=== PATIENT | male | born 1950 | race Caucasian/White ===

== ENCOUNTER 2024-01-10 12:14 | Emergency (ER) | payer MEDICARE ==
[~2024-01-10] VITALS: Ht 182.9 cm; Wt 81.6 kg
[2024-01-10 12:20] VITALS: TEMP 98.6
[2024-01-10] MEDS: SODIUM CHLORIDE 0.9% 1000ML 1,000 ML IV STA (12:43)
[2024-01-10 13:17] LABS: BASOPHILS % 0.2 % (0.0-1.0); LYMPHOCYTES # (AUTO) 0.4 (1.0-3.2); LYMPHOCYTES % 5.2 % (18.0-39.1); MEAN CORPUSCULAR HGB CONC 31.7 g/dL (31-35); MEAN CORPUSCULAR VOLUME 94.7 fL (81-99); MONOCYTES # (AUTO) 0.6 (0.2-0.8); MONOCYTES % 6.8 % (4.4-11.3); NEUTROPHILS # (AUTO) 7.2 (2.1-6.9); NEUTROPHILS % 87.4 % (38.7-80.0); PLATELET COUNT 222 x10e3/uL (140-360); RED BLOOD COUNT 4.33 x10e6/uL (4.3-5.7); RED CELL DISTRIBUTION WIDTH 13.1 % (11.7-14.4); WHITE BLOOD COUNT 8.24 x10e3/uL (4.8-10.8)
[2024-01-10 13:26] LABS: INR 0.9; PROTHROMBIN TIME 12.6 seconds (11.9-14.5)
[2024-01-10 13:35] LABS: ALANINE AMINOTRANSFERASE 16 IU/L (0-55); ALBUMIN 4.1 g/dL (3.5-5.0); ALBUMIN/GLOBULIN RATIO 1.4 (0.8-2.0); ALKALINE PHOSPHATASE 63 IU/L (40-150); ANION GAP 14.3 mmol/L (8-16); BILIRUBIN,TOTAL 1.7 mg/dL (0.2-1.2); BLOOD UREA NITROGEN 20 mg/dL (7-26); BUN/CREATININE RATIO 19 (6-25); CALCIUM 9.6 mg/dL (8.4-10.2); CARBON DIOXIDE 25 mmol/L (22-29); CHLORIDE 104 mmol/L (98-107); CREATINE KINASE 57 IU/L (30-200); CREATININE, SERUM 1.08 mg/dL (0.72-1.25); EST GLOMERULAR FILTRATION RATE 72 ML/MIN (>=60); GLUCOSE 123 mg/dL (74-118); LIPASE 16 U/L (8-78); POTASSIUM 4.3 mmol/L (3.5-5.1); SODIUM 139 mmol/L (136-145); TOTAL PROTEIN 7.1 g/dL (6.5-8.1)
[2024-01-10] MEDS: MECLIZINE HCL 12.5 MG TAB PO STA (13:49)
[2024-01-10 13:57] LABS: B-TYPE NATRIURETIC PEPTIDE2 20.1 pg/mL (0-100)
[2024-01-10 14:30] LABS: TROPONIN I < 0.05 ng/mL (0.0-0.40)
[2024-01-10 15:00] VITALS: PULSE 63; RESP 18; O2SAT 100
[2024-01-10 15:18] LABS: BILIRUBIN,URINE NEGATIVE (NEGATIVE); CLARITY,URINE CLEAR (CLEAR); COLOR,URINE YELLOW (YELLOW); GLUCOSE, URINE NEGATIVE (NEGATIVE); KETONES,URINE NEGATIVE (NEGATIVE); LEUKOCYTE ESTERASE ,URINE NEGATIVE (NEGATIVE); NITRITE,URINE NEGATIVE (NEGATIVE); PH,URINE 5.5 (5 - 7); PROTEIN,URINE DIPSTICK NEGATIVE (NEGATIVE); URINE UROBILINOGEN 0.2 mg/dL (0.2 - 1)
[2024-01-10 15:29] LABS: BACTERIA,URINE MODERATE /HPF; EPITHELIAL CELLS,URINE MODERATE /LPF; MUCUS,URINE MODERATE (RARE); RBC,URINE 21-50 /HPF (0-5)
== END 2024-01-10 16:05 | disposition home or self-care (01) ==
LOC: ER 12:35
DX: R41.0 Disorientation, unspecified (principal); R42 Dizziness and giddiness; R11.2 Nausea with vomiting, unspecified; M54.9 Dorsalgia, unspecified; K57.90 Diverticulosis of intestine, part unspecified, without perforation or abscess without bleeding; N40.0 Benign prostatic hyperplasia without lower urinary tract symptoms; Z11.52 Encounter for screening for COVID-19
CPT/HCPCS: 36415; 70450; 70551; 74176; 80053; 81001; 82140; 82550; 83690; 83880; 84484; 85025; 85610; 93005; 99284; J7030; J8597; U0002

== ENCOUNTER 2024-05-13 02:56 | Emergency (ER) | payer MEDICARE ==
[~2024-05-13] VITALS: Ht 182.9 cm; Wt 81.6 kg
[2024-05-13 03:00] VITALS: PULSE 62; RESP 18; TEMP 98.6; O2SAT 96
== END 2024-05-13 03:46 | disposition home or self-care (01) ==
LOC: ER 03:01
DX: R30.0 Dysuria (principal); R33.9 Retention of urine, unspecified; Z87.442 Personal history of urinary calculi
CPT/HCPCS: 51700; 99283